=== PATIENT | male | born 1930 | race Two or more races ===

== ENCOUNTER → 2018-08-22 | Outpatient (CLI) | payer OTHER ==
[2018-08-22 08:34] LABS: Urine Blood 1+ /uL (Negative); Urine Specific Gravity 1.017 (1.001-1.035)
[2018-08-22 08:38] LABS: Hemoglobin 15.5 g/dL (13.5-17.5); Mean Corpuscular Hemoglobin 31.7 pg (28.0-32.0); Mean Corpuscular Hgb Conc. 33.7 g/dL (32.0-36.0); Mean Corpuscular Volume 94.1 fL (80.0-100.0); Platelet Count (auto) 289 10^3/uL (140-450); Red Blood Cells 4.89 10^6/uL (4.5-5.90); Red Cell Distribution Width 14.7 % (11.8-14.3); White Blood Cell 7.3 10^3/uL (4.4-10.8)
[2018-08-22 09:02] LABS: Band Neutrophils % (manual) 0; Basophils % (manual) 0 (0.0-2.0); Blast Cells 0; Metamyelocytes % 0; Myelocytes % 0; Promyelocytes % 0; Reactive Lymphocytes 0
[2018-08-22 09:05] LABS: Potassium 3.9 mmol/L (3.5-5.1)
[2018-08-22 09:18] LABS: Free T4 (Free Thyroxine) 1.19 ng/dL (0.89-1.76)
[2018-08-22 09:19] LABS: Albumin 4.2 g/dL (3.4-5.0); BUN/Creatinine Ratio 12.3; Bilirubin, Total 0.7 mg/dL (0.2-1.0); Calcium 9.7 mg/dL (8.5-10.1); Total Protein 8.7 g/dL (6.4-8.2)
[2018-08-22 09:20] LABS: Folate (Folic Acid) 12.61 ng/mL (5.38-24)
[2018-08-22 09:34] LABS: Eosinophils % (manual) 21 (0-7); Lymphocytes % (manual) 35 (10.0-50.0); Monocytes % (manual) 7 (0-12)
== END | disposition home or self-care (01) ==
LOC: LAB 07:42
PROVIDERS: ATTEND Internal Medicine
DX: E11.8 Type 2 diabetes mellitus with unspecified complications (principal)
CPT/HCPCS: 36415; 80053; 80061; 81003; 82043; 82607; 82746; 83036; 84439; 84443; 85007; 85027; 86803

== ENCOUNTER → 2018-12-13 | Outpatient (CLI) | payer OTHER ==
[2018-12-13 09:11] LABS: Basophils # (auto) 0.1 uL; Basophils % (auto) 1.4 % (0.0-2.0); Eosinophils # (auto) 1.1 uL; Hematocrit 45.5 % (41.0-53.0); Hemoglobin 14.9 g/dL (13.5-17.5); Lymphocytes % (auto) 27.8 % (10.0-50.0); Mean Corpuscular Hemoglobin 30.8 pg (28.0-32.0); Mean Corpuscular Hgb Conc. 32.7 g/dL (32.0-36.0); Mean Corpuscular Volume 94.2 fL (80.0-100.0); Monocytes # (auto) 0.6 uL; Monocytes % (auto) 7.7 % (0.0-12.0); Neutrophils # (auto) 3.5 uL; Neutrophils % (auto) 48.1 % (37.0-80.0); Nucleated Red Blood Cells % 0.1 %; Platelet Count (auto) 294 10^3/uL (140-450); Red Blood Cells 4.83 10^6/uL (4.5-5.90); Red Cell Distribution Width 14.7 % (11.8-14.3); White Blood Cell 7.3 10^3/uL (4.4-10.8)
[2018-12-13 10:21] LABS: Potassium 5.4 mmol/L (3.5-5.1)
[2018-12-13 10:36] LABS: Albumin 3.6 g/dL (3.4-5.0); BUN/Creatinine Ratio 18.3; Bilirubin, Total 0.7 mg/dL (0.2-1.0); Calcium 10.1 mg/dL (8.5-10.1); Total Protein 7.8 g/dL (6.4-8.2)
== END | disposition home or self-care (01) ==
LOC: LAB 08:14
PROVIDERS: ATTEND Internal Medicine Cardiovascular Disease
DX: E11.9 Type 2 diabetes mellitus without complications (principal); I35.0 Nonrheumatic aortic (valve) stenosis; I10 Essential (primary) hypertension; R01.1 Cardiac murmur, unspecified; E78.00 Pure hypercholesterolemia, unspecified; R07.9 Chest pain, unspecified; R42 Dizziness and giddiness
CPT/HCPCS: 36415; 80053; 80061; 84443; 85025

== ENCOUNTER → 2019-01-26 | Outpatient (CLI) | payer OTHER ==
[2019-01-26 12:09] LABS: Urine Bacteria NONE SEEN /hpf (None Seen); Urine Blood 2+ /uL (Negative); Urine Mucus FEW (None Seen); Urine Specific Gravity 1.019 (1.001-1.035); Urine WBC 92 /hpf (0 - 3)
== END | disposition home or self-care (01) ==
LOC: LAB 10:45
DX: R35.0 Frequency of micturition (principal); E11.9 Type 2 diabetes mellitus without complications; I10 Essential (primary) hypertension
CPT/HCPCS: 81001; 84153; 87086

== ENCOUNTER → 2019-03-06 | Outpatient (CLI) | payer OTHER ==
[2019-03-06 09:09] LABS: Basophils # (auto) 0 uL; Basophils % (auto) 0.5 % (0.0-2.0); Eosinophils # (auto) 0 uL; Eosinophils % (auto) 0.3 % (0.0-7.0); Hematocrit 42.1 % (41.0-53.0); Lymphocytes # (auto) 2.5 uL; Lymphocytes % (auto) 25.1 % (10.0-50.0); Mean Corpuscular Hemoglobin 31.1 pg (28.0-32.0); Mean Corpuscular Hgb Conc. 33.3 g/dL (32.0-36.0); Mean Corpuscular Volume 93.3 fL (80.0-100.0); Monocytes # (auto) 0.8 uL; Monocytes % (auto) 8.4 % (0.0-12.0); Neutrophils # (auto) 6.5 uL; Neutrophils % (auto) 65.7 % (37.0-80.0); Platelet Count (auto) 268 10^3/uL (140-450); Red Blood Cells 4.52 10^6/uL (4.5-5.90); Red Cell Distribution Width 14.2 % (11.8-14.3)
[2019-03-06 09:18] LABS: Urine Bacteria NONE SEEN /hpf (None Seen); Urine Blood Negative /uL (Negative); Urine Mucus FEW (None Seen); Urine Specific Gravity 1.014 (1.001-1.035); Urine WBC 54 /hpf (0 - 3)
[2019-03-06 09:29] LABS: Potassium 4.5 mmol/L (3.5-5.1)
[2019-03-06 09:37] LABS: Albumin 3.8 g/dL (3.4-5.0); BUN/Creatinine Ratio 18.4; Bilirubin, Total 0.7 mg/dL (0.2-1.0); Calcium 9.8 mg/dL (8.5-10.1); Total Protein 7.7 g/dL (6.4-8.2)
== END | disposition home or self-care (01) ==
LOC: LAB 08:12
PROVIDERS: ATTEND Internal Medicine
DX: E87.5 Hyperkalemia (principal); R07.9 Chest pain, unspecified; I10 Essential (primary) hypertension; R01.1 Cardiac murmur, unspecified; R42 Dizziness and giddiness
CPT/HCPCS: 36415; 80053; 80061; 81001; 83036; 84443; 85025; 87086

== ENCOUNTER → 2019-08-29 | Outpatient (CLI) | payer OTHER ==
[2019-08-29 12:05] LABS: Basophils # (auto) 0.1 10 ^3/uL (0-0.2); Eosinophils # (auto) 0.7 10 ^3/uL (0-0.8); Eosinophils % (auto) 9.1 % (0.0-7.0); Hematocrit 43.7 % (41.0-53.0); Hemoglobin 14.7 g/dL (13.5-17.5); Lymphocytes # (auto) 1.9 10 ^3/uL (0.4-5.4); Mean Corpuscular Hgb Conc. 33.6 g/dL (32.0-36.0); Mean Corpuscular Volume 92.3 fL (80.0-100.0); Monocytes # (auto) 0.6 10 ^3/uL (0-1.3); Monocytes % (auto) 7.5 % (0.0-12.0); Neutrophils # (auto) 4.3 10 ^3/uL (1.6-8.6); Neutrophils % (auto) 57.4 % (37.0-80.0); Nucleated Red Blood Cells % 0.1 %; Platelet Count (auto) 237 10^3/uL (140-450); Red Blood Cells 4.74 10^6/uL (4.5-5.90); Red Cell Distribution Width 14.8 % (11.8-14.3); White Blood Cell 7.4 10^3/uL (4.4-10.8)
[2019-08-29 12:47] LABS: BUN/Creatinine Ratio 18.3; Calcium 9.9 mg/dL (8.5-10.1); Potassium 4.7 mmol/L (3.5-5.1)
== END | disposition home or self-care (01) ==
LOC: LAB 11:45
PROVIDERS: ATTEND Internal Medicine
DX: E11.22 Type 2 diabetes mellitus with diabetic chronic kidney disease (principal)
CPT/HCPCS: 36415; 80048; 83036; 85025

== ENCOUNTER 2019-09-14 15:10 | Emergency (ER) | payer OTHER ==
[~2019-09-14] VITALS: Ht 165.1 cm; Wt 65.8 kg
[2019-09-14] MEDS ORDERED: traMADol HCL 50 MG TAB PO ONE (15:30)
[2019-09-14 15:58] LABS: Basophils # (auto) 0.1 10 ^3/uL (0-0.2); Basophils % (auto) 1.2 % (0.0-2.0); Eosinophils # (auto) 0.8 10 ^3/uL (0-0.8); Eosinophils % (auto) 10.6 % (0.0-7.0); Hematocrit 42.8 % (41.0-53.0); Hemoglobin 14.2 g/dL (13.5-17.5); Lymphocytes # (auto) 2.1 10 ^3/uL (0.4-5.4); Lymphocytes % (auto) 29.2 % (10.0-50.0); Mean Corpuscular Hgb Conc. 33.1 g/dL (32.0-36.0); Mean Corpuscular Volume 93.5 fL (80.0-100.0); Monocytes # (auto) 0.5 10 ^3/uL (0-1.3); Monocytes % (auto) 6.9 % (0.0-12.0); Neutrophils # (auto) 3.8 10 ^3/uL (1.6-8.6); Neutrophils % (auto) 52.1 % (37.0-80.0); Nucleated Red Blood Cells % 0.1 %; Platelet Count (auto) 256 10^3/uL (140-450); Red Blood Cells 4.57 10^6/uL (4.5-5.90); White Blood Cell 7.2 10^3/uL (4.4-10.8)
[2019-09-14 17:24] VITALS: BP 149/68
== END 2019-09-14 17:24 | disposition home or self-care (01) ==
LOC: ER 15:12
DX: M16.11 Unilateral primary osteoarthritis, right hip (principal); M85.80 Other specified disorders of bone density and structure, unspecified site; M47.816 Spondylosis without myelopathy or radiculopathy, lumbar region
CPT/HCPCS: 36415; 72131; 73502; 85025

== ENCOUNTER → 2020-02-12 | Outpatient (CLI) | payer OTHER ==
[2020-02-12 10:27] LABS: Urine Bacteria NONE SEEN /hpf (None Seen); Urine Blood Negative /uL (Negative); Urine Specific Gravity 1.007 (1.001-1.035); Urine WBC <1 /hpf (0 - 3)
[2020-02-12 10:47] LABS: Albumin 3.6 g/dL (3.4-5.0); Calcium 9.8 mg/dL (8.5-10.1); Potassium 4.5 mmol/L (3.5-5.1)
[2020-02-12 10:53] LABS: BUN/Creatinine Ratio 17.8; Bilirubin, Total 0.4 mg/dL (0.2-1.0); Total Protein 7.3 g/dL (6.4-8.2)
== END | disposition home or self-care (01) ==
LOC: LAB 09:52
PROVIDERS: ATTEND Internal Medicine
DX: E11.22 Type 2 diabetes mellitus with diabetic chronic kidney disease (principal); N18.9 Chronic kidney disease, unspecified
CPT/HCPCS: 36415; 80053; 81001; 82043; 83036

== ENCOUNTER → 2020-02-20 | Outpatient (CLI) | payer OTHER | END | disposition home or self-care (01) | LOC: LAB 13:49 | PROVIDERS: ATTEND Internal Medicine | DX: N40.0 Benign prostatic hyperplasia without lower urinary tract symptoms (principal) | CPT/HCPCS: 84153 ==

== ENCOUNTER → 2020-05-29 | Outpatient (CLI) | payer OTHER ==
[2020-05-29 10:19] LABS: Calcium 9.5 mg/dL (8.5-10.1); Potassium 4.4 mmol/L (3.5-5.1)
[2020-05-29 10:24] LABS: BUN/Creatinine Ratio 21.2
== END | disposition home or self-care (01) ==
LOC: LAB 09:06
PROVIDERS: ATTEND Internal Medicine
DX: I10 Essential (primary) hypertension (principal); E11.22 Type 2 diabetes mellitus with diabetic chronic kidney disease; N18.9 Chronic kidney disease, unspecified
CPT/HCPCS: 36415; 80048; 80061; 82043; 83036

== ENCOUNTER → 2020-10-21 | Outpatient (CLI) | payer OTHER ==
[2020-10-21 08:17] LABS: Hematocrit 41.1 % (41.0-53.0); Mean Corpuscular Hemoglobin 31.8 pg (28.0-32.0); Mean Corpuscular Volume 93.5 fL (80.0-100.0); Platelet Count (auto) 246 10^3/uL (140-450); Red Cell Distribution Width 15.1 % (11.8-14.3); White Blood Cell 6.2 10^3/uL (4.4-10.8)
[2020-10-21 08:22] LABS: Basophils % (manual) 0 (0.0-2.0); Blast Cells 0; Metamyelocytes % 0; Myelocytes % 0; Promyelocytes % 0; Reactive Lymphocytes 0
[2020-10-21 08:42] LABS: Potassium 4.9 mmol/L (3.5-5.1)
[2020-10-21 08:47] LABS: Albumin 3.6 g/dL (3.4-5.0); BUN/Creatinine Ratio 21.1; Bilirubin, Total 0.7 mg/dL (0.2-1.0); Calcium 9.5 mg/dL (8.5-10.1); Total Protein 7.6 g/dL (6.4-8.2)
[2020-10-21 10:40] LABS: Band Neutrophils % (manual) 1; Eosinophils % (manual) 17 (0-7); Lymphocytes % (manual) 33 (10.0-50.0); Monocytes % (manual) 14 (0-12)
== END | disposition home or self-care (01) ==
LOC: LAB 07:53
PROVIDERS: ATTEND Internal Medicine
DX: E11.9 Type 2 diabetes mellitus without complications (principal); I25.9 Chronic ischemic heart disease, unspecified; E55.9 Vitamin D deficiency, unspecified
CPT/HCPCS: 36415; 80053; 82306; 83036; 85007; 85027

== ENCOUNTER → 2021-06-02 | Outpatient (CLI) | payer OTHER ==
[2021-06-02 08:54] LABS: Basophils # (auto) 0.1 10 ^3/uL (0-0.2); Eosinophils # (auto) 0.9 10 ^3/uL (0-0.8); Eosinophils % (auto) 13.8 % (0.0-7.0); Hematocrit 42.4 % (41.0-53.0); Lymphocytes # (auto) 1.8 10 ^3/uL (0.4-5.4); Lymphocytes % (auto) 29.3 % (10.0-50.0); Mean Corpuscular Hemoglobin 30.5 pg (28.0-32.0); Mean Corpuscular Volume 92.4 fL (80.0-100.0); Monocytes # (auto) 0.5 10 ^3/uL (0-1.3); Monocytes % (auto) 8.7 % (0.0-12.0); Neutrophils # (auto) 2.9 10 ^3/uL (1.6-8.6); Neutrophils % (auto) 47.2 % (37.0-80.0); Red Blood Cells 4.59 10^6/uL (4.5-5.90); Red Cell Distribution Width 14.5 % (11.8-14.3); White Blood Cell 6.2 10^3/uL (4.4-10.8)
[2021-06-02 09:26] LABS: Albumin 3.7 g/dL (3.4-5.0); Calcium 9.5 mg/dL (8.5-10.1); Potassium 4.6 mmol/L (3.5-5.1)
[2021-06-02 09:31] LABS: BUN/Creatinine Ratio 19.1; Bilirubin, Total 0.7 mg/dL (0.2-1.0); Total Protein 7.5 g/dL (6.4-8.2)
== END | disposition home or self-care (01) ==
LOC: LAB 08:33
PROVIDERS: ATTEND Student in an Organized Health Care Education/Training Program
DX: E11.9 Type 2 diabetes mellitus without complications (principal)
CPT/HCPCS: 36415; 80053; 82306; 83036; 84443; 85025

== ENCOUNTER → 2021-12-01 | Outpatient (CLI) | payer OTHER ==
[2021-12-01 08:30] LABS: Hematocrit 41.6 % (41.0-53.0); Hemoglobin 13.8 g/dL (13.5-17.5); Mean Corpuscular Hemoglobin 30.5 pg (28.0-32.0); Mean Corpuscular Hgb Conc. 33.1 g/dL (32.0-36.0); Red Blood Cells 4.52 10^6/uL (4.5-5.90); Red Cell Distribution Width 15.1 % (11.8-14.3); White Blood Cell 6.3 10^3/uL (4.4-10.8)
[2021-12-01 08:31] LABS: Urine Bacteria FEW /hpf (None Seen); Urine Blood Negative /uL (Negative); Urine Mucus FEW (None Seen); Urine Specific Gravity 1.022 (1.001-1.035); Urine WBC 1 /hpf (0 - 3)
[2021-12-01 08:33] LABS: Band Neutrophils % (manual) 0; Basophils % (manual) 0 (0.0-2.0); Blast Cells 0; Metamyelocytes % 0; Myelocytes % 0; Promyelocytes % 0
[2021-12-01 09:13] LABS: Potassium 4.3 mmol/L (3.5-5.1)
[2021-12-01 09:21] LABS: Free T4 (Free Thyroxine) 1.09 ng/dL (0.89-1.76)
[2021-12-01 09:22] LABS: Albumin 3.6 g/dL (3.4-5.0); BUN/Creatinine Ratio 25.2; Bilirubin, Total 0.8 mg/dL (0.2-1.0); Calcium 9.5 mg/dL (8.5-10.1); Prostate Specific Antigen 3.19 ng/mL (0.0-4.0); Total Protein 7.3 g/dL (6.4-8.2)
[2021-12-01 09:23] LABS: Folate (Folic Acid) 11.84 ng/mL (5.38-24)
[2021-12-01 11:36] LABS: Lymphocytes % (manual) 28 (10.0-50.0); Monocytes % (manual) 7 (0-12)
[2021-12-01 11:37] LABS: Eosinophils % (manual) 16 (0-7); Reactive Lymphocytes 2
[2021-12-02 06:07] LABS: RPR Non Reactive (Non Reactive)
== END | disposition home or self-care (01) ==
LOC: LAB 07:52
PROVIDERS: ATTEND Internal Medicine
DX: R41.89 Other symptoms and signs involving cognitive functions and awareness (principal); E11.9 Type 2 diabetes mellitus without complications
CPT/HCPCS: 36415; 80053; 80061; 81001; 82607; 82746; 83036; 84153; 84439; 84443; 85007; 85027; 85652; 86592